=== PATIENT | female | born 1935 | race Caucasian/White ===

== ENCOUNTER 2017-11-23 11:10 | Observation (INO) | payer MEDICARE, OTHER ==
[2017-11-23 11:45] LABS: CHLORIDE,CL 107 mEq/L (98-106); SODIUM,NA 144 mEq/L (136-145)
[2017-11-23] MEDS ORDERED: Ondansetron 4 MG/2 ML SDV IV PRN (13:31)
[2017-11-23] MEDS ORDERED: Ondansetron 4 MG Tab.DIS PO PRN (13:31)
[2017-11-23] MEDS ORDERED: Acetaminophen 325 MG Tab PO PRN (13:31)
[2017-11-23] MEDS ORDERED: Enoxaparin 30 MG/0.3 ML Syringe SUBCUT SCH (14:00)
[2017-11-23] MEDS: Meclizine 12.5 MG Tab PO SCH ×2 (14:06→19:46)
[2017-11-23] MEDS: Sodium Chloride 0.9% 1,000 ML IV SCH (17:48)
[2017-11-24] MEDS: Meclizine 12.5 MG Tab PO SCH ×2 (01:16→07:40)
[2017-11-24] MEDS: Sodium Chloride 0.9% 1,000 ML IV SCH (06:52)
[2017-11-24 07:38] VITALS: BP 145/83
[2017-11-24] MEDS ORDERED: Aspirin 325 MG Tab PO SCH (08:00)
--- NOTE | 2017-11-24 08:51 | PCM.DCSUM1 ---
Discharge Summary - Hospital Course Free Text/Narrative:: Patient presented to clinic to see Sameera Birch with complaints of dizziness. States had been experiencing dizziness since , mostly in the am but thought it was related to her blood pressure. Would take her blood pressure medicine and symptoms would pass. On day of admission, symptoms did not improve. [place] like she was going to fall. Did have issues with nausea. No recent head trauma. Denies any weakness or numbness or tingling in her legs or arms. No visual changes. Labs essentially negative on admit, wBC 4.3, CRP 2.1. Small leukocytes in urine. Admitted and started on IV fluids. Referred to PT for canalith repositioning. Diagnosis: Stroke: No Modified [place] Scale: No Symptoms at All Modified [place] Scale Score: 0 - Discharge Data Discharge Date: 11/24/17 Discharge Disposition: Home, Self-Care 01 Condition: Good - Patient Summary/Data Complications: none Consults: Consultations 11/23/17 13:31 PT Evaluation and Treatment [CONS] Routine Hospital Course: Patient feeling good today. No further dizziness. Was to PT yesterday and had canalith repositioning. She is up and ambulatory in the room without concern. Denies nausea. Blood pressure has been stable. Will discharge home on Meclizine. - Patient Instructions Diet: Usual Diet as Tolerated Activity: As Tolerated - Discharge Plan *PRESCRIPTION DRUG MONITORING PROGRAM REVIEWED*: No *COPY OF PRESCRIPTION DRUG MONITORING REPORT IN PATIENT WILD: No Prescriptions/Med Rec: Meclizine [Antivert] 25 mg PO Q6H PRN #30 tablet PRN Reason: Dizziness Home Medications: Home Meds Aspirin 325 mg PO DAILY 07/12/13 [History] Niacin [Niacin ER] 1,000 mg PO DAILY 07/12/13 [History] Levothyroxine 175 mcg PO Q48H 07/13/13 [History] Metoprolol Succinate [Toprol XL] 50 mg PO BID 07/18/15 [History] Pantoprazole Sodium 1 tab PO DAILY 07/18/15 [History] Acetaminophen/Diphenhydramine [Tylenol Pm Ex-Strength Caplet] 1 tab PO BEDTIME 11/23/17 [History] busPIRone HCl [Buspirone HCl] 10 mg PO DAILY 11/23/17 [History] Meclizine [Antivert] 25 mg PO Q6H PRN #30 tablet 11/24/17 [Rx] Referrals: Sameera Birch PA-C [Primary Care Provider] - (Follow up with Sameera Birch in one week) - Discharge Summary/Plan Comment DC Time >30 min.: No Discharge Summary/Plan Comment: Discharge home Meclizine 25 mg q 6h as needed for dizziness Follow up with Sameera in one week. - General Info Date of Service: 11/24/17 Admission Dx/Problem (Free Text: Vertigo Functional Status: Reports: Pain Controlled, Tolerating Diet, Ambulating - Review of Systems General: Denies: Fever, Weakness, Fatigue HEENT: Reports: No Symptoms Pulmonary: Denies: Shortness of Breath, Cough Cardiovascular: Denies: Chest Pain, Edema, Lightheadedness Gastrointestinal: Denies: Abdominal Pain, Nausea, Vomiting Genitourinary: Reports: No Symptoms Musculoskeletal: Reports: No Symptoms Skin: Reports: No Symptoms Neurological: Denies: Dizziness, Headache, Weakness - Patient Data Vitals - Most Recent: Last Vital Signs Temp 97.7 F 11/24/17 07:37 Pulse 59 L 11/24/17 07:37 Resp 20 11/24/17 07:37 BP 145/83 H 11/24/17 07:37 Pulse Ox 96 11/24/17 07:37 Weight - Most Recent: 217 lb 6.4 oz I&O - Last 24 hours: Intake & Output 11/23/17 11/24/17 11/24/17 22:59 06:59 14:59 Intake Total 1100 1280 Output Total 1100 1100 700 Balance 0 180 -700 Lab Results - Last 24 hrs: Laboratory Results - last 24 hr 11/23/17 11/23/17 11/23/17 Range/Units 11:15 11:15 11:15 WBC 4.3 L (5.0-10.0) 10^3/uL RBC 4.81 (4.00-5.50) 10^6/uL Hgb 14.8 (12.0-16.0) g/dL Hct 45.7 (37.0-47.0) % MCV 95.0 H (82.0-94.0) fL MCH 30.8 (27.0-32.0) pg MCHC 32.4 L (33.0-38.0) g/dL RDW Coeff of [place] 13.0 (11.0-15.0) % Plt Count 187 (150-400) 10^3/uL Neut % (Auto) 68.3 (35-85) % Lymph % (Auto) 21.5 (10-55) % Early % (Auto) 6.0 (0-16) % Eos % (Auto) 3.7 (0-5) % Baso % (Auto) 0.5 (0-3) % Neut # (Auto) 2.96 (1.80-7.00) 10^3/uL Lymph # (Auto) 0.93 L (1.00-4.80) 10^3/uL Early # (Auto) 0.26 (0.00-0.80) 10^3/uL Eos # (Auto) 0.16 (0.00-0.45) 10^3/uL Baso # (Auto) 0.02 10^3/uL Sodium 144 (136-145) mEq/L Potassium 4.1 (3.5-5.0) mEq/L Chloride 107 H (98-106) mEq/L Carbon Dioxide 30 (21-32) mmol/L BUN 15 (7-18) mg/dL Creatinine 1.0 (0.6-1.0) mg/dL Est Cr Clr Drug Dosing TNP Estimated GFR (MDRD) 53 L (>=60) mL/min Glucose 117 H (75-99) mg/dL Calcium 9.1 (8.4-10.1) mg/dL Total Bilirubin 0.3 (0.0-1.0) mg/dL AST 25 (15-37) U/L ALT 32 (12-78) U/L Alkaline Phosphatase 106 (46-116) U/L C-Reactive Protein 2.1 H (0.2-0.8) mg/dL Total Protein 6.9 (6.4-8.2) g/dL Albumin 3.4 (3.4-5.0) g/dL TSH, Ultra Sensitive 0.66 (0.36-5.60) uIU/mL Urine Color Yellow (YELLOW) Urine Appearance Clear (CLEAR) Urine pH 7.0 (4.5-8.0) Ur Specific [place] 1.020 (1.003-1.020) Urine Protein Negative (NEGATIVE) mg/dL Urine Glucose (UA) Negative (NEGATIVE) mg/dL Urine Ketones Negative (NEGATIVE) mg/dL Urine Occult Blood Negative (NEGATIVE) Urine Nitrite Negative (NEGATIVE) Urine Bilirubin Negative (NEGATIVE) Urine Urobilinogen 0.2 (0.2-1.0) EU/dL Ur Leukocyte Esterase Small H (NEGATIVE) Urine RBC Not seen (0-5) /HPF Urine WBC 5-10 H (0-5) /HPF Ur Epithelial Cells Few H (NOT SEEN) /HPF Urine Mucus Moderate H (NOT SEEN) /HPF Med Orders - Current: Current Medications Acetaminophen (Tylenol) 650 mg PO Q4H PRN PRN Reason: Pain (Mild 1-3)/fever Aspirin (Aspirin) 325 mg PO DAILY [facility] Last Admin: 11/24/17 07:42 Dose: Not Given Enoxaparin Sodium (Lovenox) 30 mg SUBCUT Q24H [facility] Last Admin: 11/23/17 14:06 Dose: 30 mg Sodium Chloride (Normal Saline) 1,000 mls @ 75 mls/hr IV ASDIRECTED [facility] Last Admin: 11/24/17 06:52 Dose: 75 mls/hr Meclizine HCl (Antivert) 12.5 mg PO Q6H [facility] Last Admin: 11/24/17 07:40 Dose: 12.5 mg Ondansetron HCl (Zofran) 4 mg IV Q6H PRN PRN Reason: Nausea/Vomiting Ondansetron HCl (Zofran Odt) 4 mg PO Q4H PRN PRN Reason: nausea, able to take PO - Exam General: Reports: Alert, Oriented HEENT: Reports: Mucous Membr. Moist/[place]ck: Reports: Supple Lungs: Reports: Normal Respiratory Effort, Wheezing Cardiovascular: Reports: Regular Rate, Regular Rhythm GI/Abdominal Exam: Normal Bowel Sounds, Soft, Non-Tender Extremities: Normal Inspection, No Pedal Edema Skin: Reports: Warm, Dry Neurological: Reports: No New Focal Deficit
== END 2017-11-24 09:30 | disposition home or self-care (01) ==
LOC: CC.FCMC 11:10 → UNDOADMOB 11:58 → CC.MS 11:58
PROVIDERS: ADMIT Physician Assistant Medical; ATTEND Family Medicine
DX: R42 Dizziness and giddiness (principal); R53.1 Weakness; R26.89 Other abnormalities of gait and mobility; H83.93 Unspecified disease of inner ear, bilateral; Z79.82 Long term (current) use of aspirin; Z79.899 Other long term (current) drug therapy; Z87.891 Personal history of nicotine dependence
CPT/HCPCS: 36415; 70450; 80053; 81001; 84443; 85025; 86140; 96360; 96361; 96372; 97112; 97750; A9270; G0378; J1650; J7030; 99217; 99219

== ENCOUNTER 2021-03-06 19:45 | Inpatient (IN) | payer MEDICARE, OTHER ==
[2021-03-06] MEDS ORDERED: Ondansetron 8 MG in Sodium Chloride 0.9% 50 ML IV PRN (20:17)
[2021-03-06] MEDS ORDERED: Sodium Chloride 0.9% 1,000 ML IV ONE (20:19)
[2021-03-06] MEDS: Pantoprazole 40 MG Vial IVPUSH SCH (20:35)
[2021-03-06 20:54] LABS: CHLORIDE,CL 95 mEq/L (98-106); SODIUM,NA 141 mEq/L (136-145)
[2021-03-06 21:12] LABS: CORONAVIRUS COVID-19 NAA NEGATIVE (NEGATIVE)
[2021-03-06] MEDS ORDERED: Promethazine 12.5 MG in Sodium Chloride 0.9% 50 ML IV PRN (21:58)
[2021-03-06] MEDS: Sodium Chloride 0.9% 1,000 ML IV SCH (23:45)
[2021-03-07] MEDS: Ondansetron 4 MG/2 ML SDV IVPUSH PRN (02:56)
[2021-03-07] MEDS ORDERED: Levothyroxine 50 MCG Tab PO SCH (07:00)
[2021-03-07] MEDS ORDERED: Levothyroxine 125 MCG Tab PO SCH (07:00)
[2021-03-07] MEDS: Sodium Chloride 0.9% 1,000 ML IV SCH ×3 (07:45→20:30)
[2021-03-07] MEDS ORDERED: Take Home: Pantoprazole 40 MG Tab.CR, 1 Tab Pack PO SCH (08:00)
[2021-03-07] MEDS: Enoxaparin 30 MG/0.3 ML Syringe SUBCUT SCH (08:27)
[2021-03-07] MEDS: buPROPion 100 MG Tab.SR PO SCH ×2 (12:03→20:30)
[2021-03-07] MEDS: Metoprolol Succinate 100 MG Tab.ER PO SCH ×2 (12:03→20:30)
[2021-03-07] MEDS: PARoxetine 20 MG Tab PO SCH (12:06)
[2021-03-07] MEDS: Morphine 2 MG/ML SYRINGE IVPUSH PRN (18:45)
[2021-03-07] MEDS: Pantoprazole 40 MG Vial IVPUSH SCH (19:49)
[2021-03-07] MEDS ORDERED: NIACIN 500 MG PO SCH (20:00)
[2021-03-07] MEDS: Aspirin 325 MG Tab PO SCH (20:30)
[2021-03-08] MEDS: Sodium Chloride 0.9% 1,000 ML IV SCH ×2 (04:25→15:14)
[2021-03-08] MEDS: Levothyroxine 100 MCG Tab PO SCH (06:00)
[2021-03-08] MEDS: PARoxetine 20 MG Tab PO SCH (08:29)
[2021-03-08] MEDS: Metoprolol Succinate 100 MG Tab.ER PO SCH ×2 (08:29→21:00)
[2021-03-08] MEDS: buPROPion 100 MG Tab.SR PO SCH ×2 (08:30→21:00)
[2021-03-08] MEDS: Enoxaparin 30 MG/0.3 ML Syringe SUBCUT SCH (08:35)
[2021-03-08] MEDS ORDERED: Metoprolol Tartrate 5 MG/5 ML SDV IVPUSH ONE ×3 (12:44→18:11)
[2021-03-08] MEDS: Morphine 2 MG/ML SYRINGE IVPUSH PRN (19:46)
[2021-03-08] MEDS: Pantoprazole 40 MG Vial IVPUSH SCH (19:51)
[2021-03-08] MEDS: Aspirin 325 MG Tab PO SCH (21:00)
[2021-03-08] MEDS ORDERED: Metoprolol Tartrate 5 MG/5 ML SDV IVPUSH STA (23:42)
[2021-03-09] MEDS ORDERED: Metoprolol Tartrate 5 MG/5 ML SDV IVPUSH STA (00:08)
[2021-03-09] MEDS: Morphine 2 MG/ML SYRINGE IVPUSH PRN ×3 (00:25→10:03)
[2021-03-09] MEDS: Sodium Chloride 0.9% 1,000 ML IV SCH ×2 (00:48→13:51)
[2021-03-09] MEDS: PARoxetine 20 MG Tab PO SCH (08:13)
[2021-03-09] MEDS: Enoxaparin 30 MG/0.3 ML Syringe SUBCUT SCH (08:13)
[2021-03-09] MEDS: Metoprolol Succinate 100 MG Tab.ER PO SCH ×2 (08:14→19:40)
[2021-03-09] MEDS: buPROPion 100 MG Tab.SR PO SCH ×2 (08:20→19:40)
[2021-03-09] MEDS: Levothyroxine 100 MCG Tab PO SCH (08:29)
[2021-03-09] MEDS ORDERED: Metoprolol Tartrate 5 MG/5 ML SDV IVPUSH ONE ×2 (13:29→15:03)
[2021-03-09] MEDS: Pantoprazole 40 MG Vial IVPUSH SCH (19:39)
[2021-03-09] MEDS: Aspirin 325 MG Tab PO SCH (19:40)
[2021-03-09] MEDS ORDERED: cloNIDine 0.1 MG Tab PO STA (20:19)
[2021-03-09] MEDS: Losartan 25 MG Tab PO SCH (20:47)
[2021-03-10] MEDS: Sodium Chloride 0.9% 1,000 ML IV SCH ×2 (03:12→18:21)
[2021-03-10] MEDS: Losartan 25 MG Tab PO SCH (08:36)
[2021-03-10] MEDS: Metoprolol Succinate 100 MG Tab.ER PO SCH ×2 (08:36→20:18)
[2021-03-10] MEDS: Levothyroxine 100 MCG Tab PO SCH (08:37)
[2021-03-10] MEDS: PARoxetine 20 MG Tab PO SCH (08:38)
[2021-03-10] MEDS: Enoxaparin 30 MG/0.3 ML Syringe SUBCUT SCH (08:38)
[2021-03-10] MEDS: buPROPion 100 MG Tab.SR PO SCH ×2 (08:38→20:18)
[2021-03-10] MEDS: Aspirin 325 MG Tab PO SCH (20:18)
[2021-03-10] MEDS: Pantoprazole 40 MG Vial IVPUSH SCH (20:19)
[2021-03-10] MEDS ORDERED: cloNIDine 0.1 MG Tab PO STA (20:28)
[2021-03-10] MEDS: cloNIDine 0.1 MG Tab PO STA ×2 (20:41→20:42)
[2021-03-11] MEDS: Sodium Chloride 0.9% 1,000 ML IV SCH ×2 (07:37→21:05)
[2021-03-11] MEDS: Enoxaparin 30 MG/0.3 ML Syringe SUBCUT SCH (07:38)
[2021-03-11] MEDS: buPROPion 100 MG Tab.SR PO SCH ×2 (07:38→19:52)
[2021-03-11] MEDS: Metoprolol Succinate 100 MG Tab.ER PO SCH ×2 (07:40→19:48)
[2021-03-11] MEDS: Levothyroxine 100 MCG Tab PO SCH (07:40)
[2021-03-11] MEDS: PARoxetine 20 MG Tab PO SCH (07:41)
[2021-03-11] MEDS: Losartan 25 MG Tab PO SCH (07:41)
[2021-03-11] MEDS: Aspirin 325 MG Tab PO SCH (19:48)
[2021-03-11] MEDS: Pantoprazole 40 MG Vial IVPUSH SCH (19:48)
[2021-03-12] MEDS ORDERED: cloNIDine 0.1 MG Tab PO STA (05:09)
[2021-03-12] MEDS: Levothyroxine 100 MCG Tab PO SCH (06:11)
[2021-03-12] MEDS: buPROPion 100 MG Tab.SR PO SCH (08:26)
[2021-03-12] MEDS: PARoxetine 20 MG Tab PO SCH (08:26)
[2021-03-12] MEDS: Metoprolol Succinate 100 MG Tab.ER PO SCH (08:26)
[2021-03-12] MEDS: Losartan 25 MG Tab PO SCH (08:27)
[2021-03-12] MEDS: Enoxaparin 30 MG/0.3 ML Syringe SUBCUT SCH (08:28)
[2021-03-12] MEDS: Ondansetron 4 MG/2 ML SDV IVPUSH PRN (12:46)
[2021-03-12 13:03] VITALS: BP 164/86; PULSE 58
== END 2021-03-12 15:12 | disposition home or self-care (01) | DRG 683 ==
LOC: CC.ED 19:45 → UNDOADMIN 21:24 → CC.MS 21:24 → UNDOADMIN 21:30 → CC.MS 21:30 → UNDOADMIN 03-07 10:40 → CC.MS 03-07 10:40
PROVIDERS: ADMIT Nurse Practitioner Family; ATTEND Family Medicine
DX: N17.9 Acute kidney failure, unspecified (principal); K56.609 Unspecified intestinal obstruction, unspecified as to partial versus complete obstruction; E86.0 Dehydration; Z20.822 Contact with and (suspected) exposure to COVID-19; I10 Essential (primary) hypertension; K21.9 Gastro-esophageal reflux disease without esophagitis; H91.90 Unspecified hearing loss, unspecified ear; H54.7 Unspecified visual loss; E03.9 Hypothyroidism, unspecified; M19.90 Unspecified osteoarthritis, unspecified site; F32.A Depression, unspecified; Z79.899 Other long term (current) drug therapy; Z96.652 Presence of left artificial knee joint; Z98.49 Cataract extraction status, unspecified eye; Z79.82 Long term (current) use of aspirin; Z79.890 Hormone replacement therapy
CPT/HCPCS: 0240U; 36415; 74019; 74176; 80048; 80053; 81001; 83605; 83690; 85025; 86140; 99285-25; A9270-GY; C9113; J1650; J2270; J2405; J2550; J3490; J7030

== ENCOUNTER 2021-03-18 10:43 | Observation (INO) | payer MEDICARE, OTHER ==
[2021-03-18] MEDS ORDERED: Sodium Chloride 0.9% 10 ML Syringe FLUSH PRN (10:52)
[2021-03-18] MEDS ORDERED: Non-Formulary Medication 1 Each (Ondansetron [Zofran Odt] 4 MG Tab.Dis) PO PRN (11:52)
[2021-03-18] MEDS ORDERED: Potassium Chloride 10 MEQ in Premix Bag 1 BAG IV SCH (12:19)
[2021-03-18] MEDS ORDERED: Loperamide 2 MG Cap PO PRN (12:19)
[2021-03-18] MEDS ORDERED: Potassium Chloride 20 MEQ in Premix Bag 1 BAG IV SCH (12:30)
[2021-03-18] MEDS ORDERED: Magnesium Sulfate/Water 2 GM in Premix Bag 1 BAG IV ONE (12:30)
[2021-03-18] MEDS: Sodium Chloride 0.9% 1,000 ML IV SCH (12:37)
[2021-03-18] MEDS: Potassium Chloride 20 MEQ in Premix Bag 1 BAG IV SCH ×3 (15:21→20:01)
[2021-03-18] MEDS: BUPROPION HCL 200 MG PO SCH (17:18)
[2021-03-18] MEDS ORDERED: SLO NIACIN 500 MG PO SCH (20:00)
[2021-03-18] MEDS ORDERED: Aspirin 325 MG Tab PO SCH (20:00)
[2021-03-19] MEDS: Sodium Chloride 0.9% 1,000 ML IV SCH (04:49)
[2021-03-19] MEDS ORDERED: LEVOTHYROXINE 200 MCG PO SCH (07:00)
[2021-03-19] MEDS ORDERED: Pantoprazole 40 MG Tab.CR **PTOM PO SCH (07:00)
[2021-03-19] MEDS: BUPROPION HCL 200 MG PO SCH (07:29)
[2021-03-19 07:54] VITALS: BP 169/79; PULSE 66
[2021-03-19] MEDS ORDERED: PARoxetine 20 MG Tab **PTOM PO SCH (08:00)
== END 2021-03-19 13:08 | disposition home health service (06) ==
LOC: CC.ED 10:43 → UNDOADMOB 11:43 → CC.MS 11:43 → UNDOADMOB 11:56 → UNDODISOB 03-19 13:08
PROVIDERS: ADMIT Nurse Practitioner Family; ATTEND Family Medicine
DX: K52.9 Noninfective gastroenteritis and colitis, unspecified (principal); I10 Essential (primary) hypertension; E87.6 Hypokalemia; E83.42 Hypomagnesemia; Z79.82 Long term (current) use of aspirin; Z79.899 Other long term (current) drug therapy; Z98.890 Other specified postprocedural states
CPT/HCPCS: 36415; 80053; 83735; 85025; 87045; 87046; 87493; 96365; 96366; 99284; A9270; G0378; J3475; J3480; J7030; 99217; 99220

== ENCOUNTER 2021-05-04 11:20 | Inpatient (IN) | payer MEDICARE, OTHER ==
[2021-05-04] MEDS ORDERED: Ondansetron 4 MG/2 ML SDV ONE (11:41)
[2021-05-04] MEDS ORDERED: Diltiazem 25 MG/5 ML SDV IVPUSH ONE (11:53)
[2021-05-04] MEDS ORDERED: Sodium Chloride 0.9% 1,000 ML IV ONE (11:54)
[2021-05-04] MEDS ORDERED: Ondansetron 4 MG/2 ML SDV IVPUSH STA (12:06)
[2021-05-04] MEDS ORDERED: Ondansetron 4 MG/2 ML SDV IVPUSH ONE (12:06)
[2021-05-04] MEDS ORDERED: Sodium Chloride 0.9% 1,000 ML IV SCH (12:33)
[2021-05-04] MEDS ORDERED: Iopamidol 755 Mg/ML 100 ML Bottle IVPUSH ONE (12:48)
[2021-05-04] MEDS ORDERED: Docusate Sodium 100 MG Cap PO PRN (14:11)
[2021-05-04] MEDS ORDERED: Ondansetron 4 MG Tab.DIS PO PRN (14:21)
[2021-05-04] MEDS ORDERED: Metoprolol Tartrate 5 MG/5 ML SDV IVPUSH ONE (16:41)
[2021-05-04] MEDS: Carvedilol 3.125 MG Tab PO SCH (17:32)
[2021-05-04] MEDS: buPROPion 100 MG Tab.SR PO SCH (19:30)
[2021-05-04] MEDS: busPIRone 5 MG Tab PO SCH (19:31)
[2021-05-04] MEDS: Acetaminophen 325 MG Tab PO PRN (23:31)
[2021-05-05] MEDS: Levothyroxine 100 MCG Tab PO SCH (06:08)
[2021-05-05] MEDS: buPROPion 100 MG Tab.SR PO SCH ×2 (07:48→20:56)
[2021-05-05] MEDS: Losartan 100 MG Tab PO SCH (07:48)
[2021-05-05] MEDS: busPIRone 5 MG Tab PO SCH ×2 (07:49→20:56)
[2021-05-05] MEDS: Carvedilol 3.125 MG Tab PO SCH ×2 (07:51→17:33)
[2021-05-05] MEDS ORDERED: Metoprolol Succinate 100 MG Tab.ER PO SCH (08:00)
[2021-05-05] MEDS ORDERED: Take Home: Pantoprazole 40 MG Tab.CR, 1 Tab Pack PO ONE (08:53)
[2021-05-05] MEDS ORDERED: Pantoprazole 40 MG Tab.CR PO ONE (09:15)
[2021-05-05] MEDS: Enoxaparin 40 MG/0.4 ML Syringe SUBCUT SCH (11:56)
[2021-05-06] MEDS: Pantoprazole 40 MG Tab.CR PO SCH (06:04)
[2021-05-06] MEDS: Levothyroxine 100 MCG Tab PO SCH (06:04)
[2021-05-06] MEDS: buPROPion 100 MG Tab.SR PO SCH ×2 (07:39→19:04)
[2021-05-06] MEDS: busPIRone 5 MG Tab PO SCH ×2 (07:40→19:05)
[2021-05-06] MEDS: Losartan 100 MG Tab PO SCH (07:40)
[2021-05-06] MEDS: Carvedilol 3.125 MG Tab PO SCH ×2 (08:09→17:34)
[2021-05-06] MEDS ORDERED: Meclizine 12.5 MG Tab PO PRN (09:21)
[2021-05-06] MEDS: Carbamide Peroxide 6.5% Otic Soln 15 ML Bottle EARBOTH SCH ×2 (11:46→19:05)
[2021-05-06] MEDS: Enoxaparin 40 MG/0.4 ML Syringe SUBCUT SCH (11:46)
[2021-05-06] MEDS ORDERED: Carvedilol 3.125 MG Tab PO ONE (18:20)
[2021-05-07] MEDS: Acetaminophen 325 MG Tab PO PRN (00:13)
[2021-05-07] MEDS: Pantoprazole 40 MG Tab.CR PO SCH (06:04)
[2021-05-07] MEDS: Levothyroxine 100 MCG Tab PO SCH (06:04)
[2021-05-07] MEDS: buPROPion 100 MG Tab.SR PO SCH (07:58)
[2021-05-07] MEDS: Losartan 100 MG Tab PO SCH (07:58)
[2021-05-07] MEDS ORDERED: Carvedilol 6.25 MG Tab PO SCH (08:00)
[2021-05-07] MEDS: busPIRone 5 MG Tab PO SCH (08:00)
[2021-05-07] MEDS: Carbamide Peroxide 6.5% Otic Soln 15 ML Bottle EARBOTH SCH (08:03)
[2021-05-07] MEDS ORDERED: Furosemide 20 MG/2 ML VIAL IVPUSH ONE (10:54)
[2021-05-07] MEDS: Enoxaparin 40 MG/0.4 ML Syringe SUBCUT SCH (11:06)
[2021-05-07] MEDS ORDERED: Furosemide 20 MG/2 ML VIAL ONE (11:31)
[2021-05-07 11:50] VITALS: BP 156/99; PULSE 119
== END 2021-05-07 12:47 | DRG 309 ==
LOC: CC.ED 11:20 → UNDOADMIN 13:15 → CC.MS 13:15
PROVIDERS: ADMIT Nurse Practitioner Family; ATTEND Nurse Practitioner Family
DX: I48.91 Unspecified atrial fibrillation (principal); N17.9 Acute kidney failure, unspecified; R09.02 Hypoxemia; I11.0 Hypertensive heart disease with heart failure; I50.9 Heart failure, unspecified; H61.23 Impacted cerumen, bilateral; H91.90 Unspecified hearing loss, unspecified ear; I10 Essential (primary) hypertension; M19.90 Unspecified osteoarthritis, unspecified site; H54.7 Unspecified visual loss; Z20.822 Contact with and (suspected) exposure to COVID-19; F41.9 Anxiety disorder, unspecified; F32.A Depression, unspecified; E03.9 Hypothyroidism, unspecified; Z96.653 Presence of artificial knee joint, bilateral; R73.9 Hyperglycemia, unspecified; E86.0 Dehydration; Z79.82 Long term (current) use of aspirin; Z79.890 Hormone replacement therapy; Z79.899 Other long term (current) drug therapy; Z98.49 Cataract extraction status, unspecified eye
CPT/HCPCS: 36415; 71045; 71275; 80053; 81001; 83735; 83880; 84484; 85025; 85379; 85610; 93005; 93010; 93306; 96374; 96375; 97161-GP; 99223; 99232; 99233; 99238; 99285-25; A9270-GY; J1650; J1940; J2405; J3490; J7030; Q9967; U0002

== ENCOUNTER 2021-06-23 03:50 | Inpatient (IN) | payer MEDICARE, OTHER ==
[2021-06-23] MEDS ORDERED: Albuterol/Ipratropium 3.0-0.5 MG/3 ML Neb Soln NEB ONE ×2 (04:25→04:51)
[2021-06-23] MEDS ORDERED: methylPREDNISolone Sodium Succinate 125 MG/2 ML SDV IVPUSH STA (04:42)
[2021-06-23] MEDS ORDERED: Sodium Chloride 0.9% 500 ML IV SCH (05:15)
[2021-06-23] MEDS ORDERED: Ondansetron 4 MG Tab.DIS PO PRN (06:06)
[2021-06-23] MEDS ORDERED: SCOPOLAMINE TD SCH (06:15)
[2021-06-23] MEDS ORDERED: Scopolamine 1.5 MG Transdermal Patch TOP SCH (06:37)
[2021-06-23] MEDS: Albuterol/Ipratropium 3.0-0.5 MG/3 ML Neb Soln NEB SCH ×5 (06:55→23:22)
[2021-06-23] MEDS: Sodium Chloride 0.9% 1,000 ML IV SCH ×2 (07:08→21:04)
[2021-06-23] MEDS ORDERED: Albuterol/Ipratropium 3.0-0.5 MG/3 ML Neb Soln NEB SCH (08:00)
[2021-06-23] MEDS: Levothyroxine 50 MCG Tab PO SCH (10:11)
[2021-06-23] MEDS: Diltiazem 180 MG Cap.CD PO SCH (10:33)
[2021-06-23] MEDS: Diltiazem 120 MG Cap.CD PO SCH (10:33)
[2021-06-23] MEDS: Losartan 25 MG Tab PO SCH (10:33)
[2021-06-23] MEDS: Apixaban 5 MG Tab PO SCH ×2 (10:33→20:52)
[2021-06-23] MEDS: NITROFURANTOIN MACROCRYSTAL 25 MG PO SCH ×2 (10:33→20:53)
[2021-06-23] MEDS: Metoprolol Succinate 100 MG Tab.ER PO SCH ×2 (10:34→20:53)
[2021-06-23] MEDS: Scopolamine 1.5 MG Transdermal Patch TOP SCH (10:34)
[2021-06-23] MEDS: cefTRIAXone 1 GM Vial IVPUSH SCH (14:17)
[2021-06-23] MEDS: methylPREDNISolone Sodium Succinate 125 MG/2 ML SDV IVPUSH SCH (20:53)
[2021-06-24] MEDS: Albuterol/Ipratropium 3.0-0.5 MG/3 ML Neb Soln NEB SCH ×6 (02:32→19:42)
[2021-06-24] MEDS: Sodium Chloride 0.9% 1,000 ML IV SCH (05:26)
[2021-06-24] MEDS: Levothyroxine 50 MCG Tab PO SCH ×3 (06:27→09:30)
[2021-06-24] MEDS: methylPREDNISolone Sodium Succinate 125 MG/2 ML SDV IVPUSH SCH ×2 (08:52→19:42)
[2021-06-24] MEDS ORDERED: cefTRIAXone 1 GM Vial IVPUSH SCH (09:00)
[2021-06-24] MEDS: Levothyroxine 100 MCG Tab PO SCH (09:00)
[2021-06-24] MEDS: Apixaban 5 MG Tab PO SCH ×2 (09:02→19:43)
[2021-06-24] MEDS: Diltiazem 180 MG Cap.CD PO SCH (09:02)
[2021-06-24] MEDS: Losartan 100 MG Tab PO SCH (09:02)
[2021-06-24] MEDS: Diltiazem 120 MG Cap.CD PO SCH (09:02)
[2021-06-24] MEDS: cefTRIAXone 1 GM Vial IVPUSH SCH ×2 (09:04→09:15)
[2021-06-24] MEDS: Metoprolol Tartrate 50 MG Tab PO SCH ×2 (09:04→19:43)
[2021-06-24] MEDS: Pantoprazole 40 MG Tab.CR PO SCH (09:08)
[2021-06-24] MEDS: Losartan 25 MG Tab PO SCH (09:30)
[2021-06-24] MEDS: Metoprolol Succinate 100 MG Tab.ER PO SCH (14:57)
[2021-06-25] MEDS ORDERED: Non-Formulary Medication 1 Each (Levothyroxine [Levothyroxine] 25 MCG Tablet) PO SCH (07:00)
[2021-06-25] MEDS: Levothyroxine 100 MCG Tab PO SCH (07:17)
[2021-06-25] MEDS: Levothyroxine 50 MCG Tab PO SCH (07:17)
[2021-06-25] MEDS: Diltiazem 180 MG Cap.CD PO SCH (07:59)
[2021-06-25] MEDS: Losartan 100 MG Tab PO SCH (08:00)
[2021-06-25] MEDS: Apixaban 5 MG Tab PO SCH ×2 (08:00→19:55)
[2021-06-25] MEDS: Diltiazem 120 MG Cap.CD PO SCH (08:00)
[2021-06-25] MEDS: Metoprolol Tartrate 50 MG Tab PO SCH ×2 (08:00→19:55)
[2021-06-25] MEDS: Pantoprazole 40 MG Tab.CR PO SCH (08:00)
[2021-06-25] MEDS: methylPREDNISolone Sodium Succinate 125 MG/2 ML SDV IVPUSH SCH ×2 (08:02→19:55)
[2021-06-25] MEDS: cefTRIAXone 1 GM Vial IVPUSH SCH (08:02)
[2021-06-25] MEDS: Albuterol/Ipratropium 3.0-0.5 MG/3 ML Neb Soln NEB SCH ×4 (08:02→19:55)
[2021-06-25] MEDS ORDERED: Metoprolol Tartrate 5 MG/5 ML SDV IVPUSH ONE (22:43)
[2021-06-25] MEDS ORDERED: Furosemide 40 MG/4 ML VIAL IVPUSH ONE (23:35)
[2021-06-26] MEDS: Levothyroxine 100 MCG Tab PO SCH (06:31)
[2021-06-26] MEDS: Levothyroxine 50 MCG Tab PO SCH (06:31)
[2021-06-26] MEDS: Losartan 100 MG Tab PO SCH (07:50)
[2021-06-26] MEDS: Metoprolol Tartrate 50 MG Tab PO SCH ×2 (07:51→19:45)
[2021-06-26] MEDS: Pantoprazole 40 MG Tab.CR PO SCH (07:51)
[2021-06-26] MEDS: Diltiazem 180 MG Cap.CD PO SCH (07:51)
[2021-06-26] MEDS: Apixaban 5 MG Tab PO SCH ×2 (07:51→19:45)
[2021-06-26] MEDS: Diltiazem 120 MG Cap.CD PO SCH (07:51)
[2021-06-26] MEDS: cefTRIAXone 1 GM Vial IVPUSH SCH (07:52)
[2021-06-26] MEDS: Albuterol/Ipratropium 3.0-0.5 MG/3 ML Neb Soln NEB SCH (07:52)
[2021-06-26] MEDS: Scopolamine 1.5 MG Transdermal Patch TOP SCH (09:09)
[2021-06-26] MEDS ORDERED: Albuterol/Ipratropium 3.0-0.5 MG/3 ML Neb Soln NEB PRN (09:16)
[2021-06-26] MEDS ORDERED: methylPREDNISolone Sodium Succinate 125 MG/2 ML SDV IVPUSH SCH (20:00)
[2021-06-27] MEDS: Levothyroxine 50 MCG Tab PO SCH (06:35)
[2021-06-27] MEDS: Levothyroxine 100 MCG Tab PO SCH (06:35)
[2021-06-27] MEDS: Metoprolol Tartrate 50 MG Tab PO SCH (07:39)
[2021-06-27] MEDS: Pantoprazole 40 MG Tab.CR PO SCH (07:39)
[2021-06-27] MEDS: Losartan 100 MG Tab PO SCH (07:39)
[2021-06-27] MEDS: Apixaban 5 MG Tab PO SCH (07:39)
[2021-06-27] MEDS: cefTRIAXone 1 GM Vial IVPUSH SCH (07:39)
[2021-06-27] MEDS: Diltiazem 180 MG Cap.CD PO SCH (07:39)
[2021-06-27] MEDS: Diltiazem 120 MG Cap.CD PO SCH (07:40)
[2021-06-27 09:10] VITALS: BP 123/82; PULSE 106
== END 2021-06-27 11:55 | disposition home or self-care (01) | DRG 202 ==
LOC: CC.ED 03:50 → UNDOADMOB 05:30 → CC.MS 05:30 → OBSVTOIN 06-24 08:27
PROVIDERS: ADMIT Nurse Practitioner Family; ATTEND Nurse Practitioner Family
DX: J45.909 Unspecified asthma, uncomplicated (principal); N30.00 Acute cystitis without hematuria; N39.0 Urinary tract infection, site not specified; I48.20 Chronic atrial fibrillation, unspecified; R42 Dizziness and giddiness; I10 Essential (primary) hypertension; F32.A Depression, unspecified; F32.9 Major depressive disorder, single episode, unspecified; M19.90 Unspecified osteoarthritis, unspecified site; G43.909 Migraine, unspecified, not intractable, without status migrainosus; Z20.822 Contact with and (suspected) exposure to COVID-19; F41.9 Anxiety disorder, unspecified; E03.9 Hypothyroidism, unspecified; H54.7 Unspecified visual loss; H91.90 Unspecified hearing loss, unspecified ear; Z96.653 Presence of artificial knee joint, bilateral; Z98.49 Cataract extraction status, unspecified eye; Z79.01 Long term (current) use of anticoagulants; Z79.82 Long term (current) use of aspirin; Z79.899 Other long term (current) drug therapy; Z79.890 Hormone replacement therapy
CPT/HCPCS: 36415; 71046; 80053; 83880; 84484; 85025; 87070; 87205; 93005; 94640; 96374; 96375; 96376; 97161-GP; 99285-25; A9270-GY; G0378; J0696; J1940; J2930; J3490; J7030; J7620-GY; U0002

== ENCOUNTER 2021-07-05 07:10 | Emergency (ER) | payer MEDICARE, OTHER ==
[2021-07-05] MEDS: Meclizine 12.5 MG Tab PO ONE ×2 (07:44→08:57)
[2021-07-05 08:07] LABS: PTT,PARTIAL THROMBOPLSTIN TIME 26.1 SEC (23.2-32.3)
[2021-07-05] MEDS ORDERED: Sodium Chloride 0.9% 10 ML Syringe FLUSH PRN (08:19)
[2021-07-05] MEDS: Ondansetron 4 MG/2 ML SDV IVPUSH ONE (08:50)
[2021-07-05] MEDS: Potassium Chloride 10% 20 MEQ/15 ML Soln 15 ML UD Cup PO ONE (08:56)
[2021-07-05 09:02] VITALS: BP 152/87; PULSE 82
[2021-07-05] MEDS ORDERED: Iopamidol 755 Mg/ML 100 ML Bottle IVPUSH ONE (10:03)
== END 2021-07-05 11:59 | disposition swing bed (61) ==
LOC: CC.ED 07:10
DX: R42 Dizziness and giddiness (principal); I11.0 Hypertensive heart disease with heart failure; I50.9 Heart failure, unspecified; I48.91 Unspecified atrial fibrillation; E87.6 Hypokalemia; E03.9 Hypothyroidism, unspecified; Z79.01 Long term (current) use of anticoagulants; Z79.899 Other long term (current) drug therapy; Z20.822 Contact with and (suspected) exposure to COVID-19
CPT/HCPCS: 36415; 70450; 71045; 71275; 80053; 82550; 83605; 83615; 83690; 83735; 83880; 84443; 84484; 85025; 85379; 85610; 85730; 86140; 87804; 93005; 96374; 99285; 99285-25; A9270-GY; J2405; U0002

== ENCOUNTER 2021-07-05 12:13 | Inpatient (IN) | payer MEDICARE, OTHER ==
[2021-07-05] MEDS ORDERED: Sodium Chloride 0.9% 10 ML Syringe FLUSH PRN (12:39)
[2021-07-05] MEDS ORDERED: Acetaminophen 325 MG Tab PO PRN (12:39)
[2021-07-05] MEDS ORDERED: Furosemide 20 MG/2 ML VIAL IVPUSH ONE (14:30)
[2021-07-05] MEDS ORDERED: Furosemide 20 MG/2 ML VIAL ONE (16:50)
[2021-07-05] MEDS: Metoprolol Tartrate 50 MG Tab PO SCH (19:51)
[2021-07-05] MEDS: Apixaban 5 MG Tab PO SCH (19:51)
[2021-07-05] MEDS ORDERED: Melatonin 3 MG Tab PO SCH (20:00)
[2021-07-05] MEDS ORDERED: Metoprolol Tartrate 50 MG Tab PO SCH (20:00)
[2021-07-06] MEDS: buPROPion 100 MG Tab.SR PO SCH ×2 (08:00→20:06)
[2021-07-06] MEDS: Levothyroxine 50 MCG Tab PO SCH (08:00)
[2021-07-06] MEDS: Diltiazem 180 MG Cap.CD PO SCH (08:00)
[2021-07-06] MEDS: Diltiazem 120 MG Cap.CD PO SCH (08:00)
[2021-07-06] MEDS: Losartan 100 MG Tab PO SCH (08:00)
[2021-07-06] MEDS: Potassium Chloride 10 MEQ Tab.ER PO SCH (08:01)
[2021-07-06] MEDS: Apixaban 5 MG Tab PO SCH ×2 (08:01→20:06)
[2021-07-06] MEDS: Levothyroxine 100 MCG Tab PO SCH (08:01)
[2021-07-06] MEDS: Metoprolol Tartrate 50 MG Tab PO SCH ×2 (08:01→20:06)
[2021-07-06] MEDS: Pantoprazole 40 MG Tab.CR PO SCH (08:01)
[2021-07-06] MEDS: Furosemide 20 MG/2 ML VIAL IVPUSH SCH (08:02)
[2021-07-07] MEDS: Levothyroxine 100 MCG Tab PO SCH (06:58)
[2021-07-07] MEDS: Pantoprazole 40 MG Tab.CR PO SCH (06:59)
[2021-07-07] MEDS: Levothyroxine 50 MCG Tab PO SCH (06:59)
[2021-07-07] MEDS: Metoprolol Tartrate 50 MG Tab PO SCH ×2 (07:44→19:52)
[2021-07-07] MEDS: Losartan 100 MG Tab PO SCH (07:45)
[2021-07-07] MEDS: Apixaban 5 MG Tab PO SCH ×2 (07:45→19:52)
[2021-07-07] MEDS: Potassium Chloride 10 MEQ Tab.ER PO SCH (07:45)
[2021-07-07] MEDS: Diltiazem 180 MG Cap.CD PO SCH (07:45)
[2021-07-07] MEDS: buPROPion 100 MG Tab.SR PO SCH ×2 (07:45→19:52)
[2021-07-07] MEDS: Diltiazem 120 MG Cap.CD PO SCH (07:46)
[2021-07-07] MEDS: Furosemide 20 MG/2 ML VIAL IVPUSH SCH (07:46)
[2021-07-08] MEDS: Diltiazem 120 MG Cap.CD PO SCH (07:57)
[2021-07-08] MEDS: Losartan 100 MG Tab PO SCH (07:58)
[2021-07-08] MEDS: Pantoprazole 40 MG Tab.CR PO SCH (07:58)
[2021-07-08] MEDS: Levothyroxine 50 MCG Tab PO SCH (07:59)
[2021-07-08] MEDS: Levothyroxine 100 MCG Tab PO SCH (07:59)
[2021-07-08] MEDS: Diltiazem 180 MG Cap.CD PO SCH (08:00)
[2021-07-08] MEDS: Apixaban 5 MG Tab PO SCH ×2 (08:00→19:47)
[2021-07-08] MEDS: Potassium Chloride 10 MEQ Tab.ER PO SCH (08:00)
[2021-07-08] MEDS: Metoprolol Tartrate 50 MG Tab PO SCH ×2 (08:00→19:46)
[2021-07-08] MEDS: buPROPion 100 MG Tab.SR PO SCH ×2 (08:00→19:44)
[2021-07-08] MEDS: Furosemide 20 MG/2 ML VIAL IVPUSH SCH (08:01)
[2021-07-08] MEDS: Meclizine 12.5 MG Tab PO PRN (10:30)
[2021-07-08] MEDS ORDERED: Diazepam 5 MG Tab PO ONE ×2 (13:35→19:31)
[2021-07-09] MEDS: Levothyroxine 100 MCG Tab PO SCH (07:36)
[2021-07-09] MEDS: Furosemide 20 MG/2 ML VIAL IVPUSH SCH (07:36)
[2021-07-09] MEDS: Levothyroxine 50 MCG Tab PO SCH (07:37)
[2021-07-09] MEDS: Metoprolol Tartrate 50 MG Tab PO SCH ×2 (07:37→19:23)
[2021-07-09] MEDS: buPROPion 100 MG Tab.SR PO SCH ×2 (07:37→19:21)
[2021-07-09] MEDS: Apixaban 5 MG Tab PO SCH ×2 (07:38→19:21)
[2021-07-09] MEDS: Diltiazem 180 MG Cap.CD PO SCH (07:38)
[2021-07-09] MEDS: Losartan 100 MG Tab PO SCH (07:38)
[2021-07-09] MEDS: Diltiazem 120 MG Cap.CD PO SCH (07:38)
[2021-07-09] MEDS: Potassium Chloride 10 MEQ Tab.ER PO SCH (07:38)
[2021-07-09] MEDS: Pantoprazole 40 MG Tab.CR PO SCH (07:38)
[2021-07-09] MEDS: Ondansetron 4 MG Tab.DIS PO PRN ×2 (08:50→18:11)
[2021-07-09] MEDS ORDERED: Diazepam 5 MG Tab PO ONE (23:20)
[2021-07-10] MEDS: Levothyroxine 100 MCG Tab PO SCH (06:50)
[2021-07-10] MEDS: Pantoprazole 40 MG Tab.CR PO SCH (06:52)
[2021-07-10] MEDS: Levothyroxine 50 MCG Tab PO SCH (06:53)
[2021-07-10] MEDS: buPROPion 100 MG Tab.SR PO SCH ×2 (07:52→19:32)
[2021-07-10] MEDS: Metoprolol Tartrate 50 MG Tab PO SCH ×2 (07:52→19:31)
[2021-07-10] MEDS: Potassium Chloride 10 MEQ Tab.ER PO SCH (07:52)
[2021-07-10] MEDS: Losartan 100 MG Tab PO SCH (07:52)
[2021-07-10] MEDS: Apixaban 5 MG Tab PO SCH ×2 (07:53→19:30)
[2021-07-10] MEDS: Furosemide 20 MG/2 ML VIAL IVPUSH SCH (07:53)
[2021-07-10] MEDS: Diltiazem 180 MG Cap.CD PO SCH (07:53)
[2021-07-10] MEDS: Diltiazem 120 MG Cap.CD PO SCH (07:56)
[2021-07-10] MEDS ORDERED: Polyethylene Glycol 3350 Powder 17 GM Packet PO PRN (09:34)
[2021-07-10] MEDS: Ondansetron 4 MG Tab.DIS PO PRN (09:34)
[2021-07-10] MEDS ORDERED: Diazepam 5 MG Tab PO PRN (18:34)
[2021-07-11] MEDS: Levothyroxine 50 MCG Tab PO SCH (07:32)
[2021-07-11] MEDS: Levothyroxine 100 MCG Tab PO SCH (07:33)
[2021-07-11] MEDS: Metoprolol Tartrate 50 MG Tab PO SCH (07:33)
[2021-07-11] MEDS: Diltiazem 180 MG Cap.CD PO SCH (07:33)
[2021-07-11] MEDS: Potassium Chloride 10 MEQ Tab.ER PO SCH (07:33)
[2021-07-11] MEDS: Pantoprazole 40 MG Tab.CR PO SCH (07:33)
[2021-07-11] MEDS: Losartan 100 MG Tab PO SCH (07:33)
[2021-07-11] MEDS: Diltiazem 120 MG Cap.CD PO SCH (07:33)
[2021-07-11] MEDS: Apixaban 5 MG Tab PO SCH (07:33)
[2021-07-11 07:35] VITALS: PULSE 78
[2021-07-11] MEDS: buPROPion 100 MG Tab.SR PO SCH (07:35)
[2021-07-11 07:42] VITALS: BP 127/90
[2021-07-11] MEDS: Meclizine 12.5 MG Tab PO PRN (08:10)
[2021-07-11] MEDS: Ondansetron 4 MG Tab.DIS PO PRN (10:16)
== END 2021-07-11 10:20 | DRG 149 ==
LOC: CC.MS 12:13 → UNDOADMIN 12:13 → CC.MS 12:39
PROVIDERS: ADMIT Nurse Practitioner Family; ATTEND Nurse Practitioner Family
DX: R42 Dizziness and giddiness (principal); I50.9 Heart failure, unspecified; I48.91 Unspecified atrial fibrillation; E87.6 Hypokalemia; H54.7 Unspecified visual loss; H91.90 Unspecified hearing loss, unspecified ear; M19.90 Unspecified osteoarthritis, unspecified site; G43.909 Migraine, unspecified, not intractable, without status migrainosus; E66.9 Obesity, unspecified; F41.9 Anxiety disorder, unspecified; Z20.822 Contact with and (suspected) exposure to COVID-19; I11.0 Hypertensive heart disease with heart failure; F32.A Depression, unspecified; E03.9 Hypothyroidism, unspecified; Z96.653 Presence of artificial knee joint, bilateral; Z79.01 Long term (current) use of anticoagulants; Z79.890 Hormone replacement therapy; Z98.49 Cataract extraction status, unspecified eye; Z79.899 Other long term (current) drug therapy; Z68.36 Body mass index [BMI] 36.0-36.9, adult
CPT/HCPCS: 36415; 71045; 80048; 83880; 84484; 85025; 97161-GP; 99306; 99307; 99316; A9270-GY; J1940; U0002

== ENCOUNTER 2022-02-04 22:46 | Emergency (ER) | payer MEDICARE, OTHER ==
[2022-02-04 23:58] LABS: CHLORIDE,CL 102 mEq/L (98-106); SODIUM,NA 140 mEq/L (136-145)
[2022-02-04 23:59] LABS: ESTIMATED GFR 34 mL/min (>=60)
[2022-02-05 00:18] LABS: CORONAVIRUS COVID-19 NAA NEGATIVE (NEGATIVE); RESPIRATORY SYNCYTIAL VIR NAA NEGATIVE (NEGATIVE)
[2022-02-05] MEDS: Furosemide 40 MG Tab PO ONE (00:58)
[2022-02-05 01:44] VITALS: BP 138/82; PULSE 96
== END 2022-02-05 01:35 | disposition home or self-care (01) ==
LOC: CC.ED 22:46
DX: I11.0 Hypertensive heart disease with heart failure (principal); I50.9 Heart failure, unspecified; Z79.01 Long term (current) use of anticoagulants; Z86.16 Personal history of COVID-19; Z79.899 Other long term (current) drug therapy; Z20.822 Contact with and (suspected) exposure to COVID-19
CPT/HCPCS: 0241U; 36415; 71046; 80053; 83735; 83880; 85025; 99285; A9270-GY

== ENCOUNTER 2023-06-14 10:45 | Emergency (ER) | payer MEDICARE, OTHER ==
[2023-06-14 10:55] VITALS: BP 103/73; PULSE 74
[2023-06-14 11:33] LABS: BASOPHILS ABSOLUTE AUTO 0.07 10^3/uL (0.00-0.50); BASOPHILS PERCENT AUTO 0.6 % (0-1); EOSINOPHILS PERCENT AUTO 1.6 % (0-6); HEMATOCRIT 44.2 % (37.0-47.0); HEMOGLOBIN 14.3 g/dL (12.0-16.0); IMMATURE GRAN ABSOLUTE AUTO 0.11 10^3/uL (0.00-0.49); IMMATURE GRAN PERCENT AUTO 0.9 % (0.0-4.9); LYMPHOCYTES ABSOLUTE AUTO 0.94 10^3/uL (0.60-5.00); LYMPHOCYTES PERCENT AUTO 7.7 % (24-44); MEAN CORPUSCULAR HGB CONC 32.4 g/dL (32.0-36.0); MEAN CORPUSCULAR VOLUME 92.9 fL (83.0-97.0); MONOCYTES ABSOLUTE AUTO 0.73 10^3/uL (0.00-1.50); NEUTROPHILS PERCENT AUTO 83.2 % (41-71); PLATELET COUNT,PLT 280 10^3/uL (150-400); RED BLOOD CELL COUNT 4.76 x10^6/uL (4.00-5.50); WHITE BLOOD CELL COUNT,WBC 12.2 10^3/uL (4.0-11.0)
[2023-06-14 11:58] LABS: ALBUMIN 3.3 g/dL (3.4-5.0); BILIRUBIN TOTAL 0.6 mg/dL (0.0-1.0); C-REACTIVE PROTEIN 1.28 mg/dL (<=0.50); CALCIUM 8.9 mg/dL (8.4-10.1); CREATININE 1.3 mg/dL (0.6-1.0); EST CRCL DRUG DOSING (CG) 29.62 mL/min; PROTEIN TOTAL,TP 7.1 g/dL (6.4-8.2)
[2023-06-14] MEDS: Azithromycin 250 MG Tab PO ONE (12:10)
[2023-06-14] MEDS: methylPREDNISolone Sodium Succinate 40 MG/1 ML SDV IVPUSH ONE (12:10)
[2023-06-14] MEDS: methylPREDNISolone Sodium Succinate 40 MG/1 ML SDV ONE (12:17)
== END 2023-06-14 12:30 | disposition home or self-care (01) ==
LOC: CC.ED 10:45
DX: J20.9 Acute bronchitis, unspecified (principal); I10 Essential (primary) hypertension; E03.9 Hypothyroidism, unspecified; Z79.01 Long term (current) use of anticoagulants; Z79.899 Other long term (current) drug therapy
CPT/HCPCS: 36415; 71045; 71046; 80053; 83735; 83880; 84484; 85025; 86140; 87804; 93005; 93010; 96374; 99284; 99285-25; A9270-GY; J2920; U0002

== ENCOUNTER 2024-04-05 09:58 | Emergency (ER) | payer MEDICARE, OTHER ==
[2024-04-05] MEDS: Albuterol/Ipratropium 3.0-0.5 MG/3 ML Neb Soln NEB ONE (10:24)
[2024-04-05 10:27] LABS: BASOPHILS ABSOLUTE AUTO 0.08 10^3/uL (0.00-0.50); EOSINOPHILS ABSOLUTE AUTO 0.16 10^3/uL (0.00-1.50); EOSINOPHILS PERCENT AUTO 1.9 % (0-6); HEMATOCRIT 46.4 % (37.0-47.0); HEMOGLOBIN 14.9 g/dL (12.0-16.0); IMMATURE GRAN ABSOLUTE AUTO 0.06 10^3/uL (0.00-0.49); IMMATURE GRAN PERCENT AUTO 0.7 % (0.0-4.9); LYMPHOCYTES ABSOLUTE AUTO 1.45 10^3/uL (0.60-5.00); LYMPHOCYTES PERCENT AUTO 17.6 % (24-44); MEAN CORPUSCULAR HEMOGLOBIN 30.1 pg (27.0-32.0); MEAN CORPUSCULAR HGB CONC 32.1 g/dL (32.0-36.0); MEAN CORPUSCULAR VOLUME 93.7 fL (83.0-97.0); MONOCYTES ABSOLUTE AUTO 0.59 10^3/uL (0.00-1.50); MONOCYTES PERCENT AUTO 7.2 % (0-10); NEUTROPHILS ABSOLUTE AUTO 5.91 x10^3/uL (1.80-8.00); NEUTROPHILS PERCENT AUTO 71.6 % (41-71); PLATELET COUNT,PLT 234 10^3/uL (150-400); RED BLOOD CELL COUNT 4.95 x10^6/uL (4.00-5.50); WHITE BLOOD CELL COUNT,WBC 8.3 10^3/uL (4.0-11.0)
[2024-04-05 10:54] LABS: ALANINE AMINOTRANSFERASE,ALT 19 U/L (12-78); ALBUMIN 3.4 g/dL (3.4-5.0); ALKALINE PHOSPHATASE 109 U/L (46-116); ASPARTATE AMNIOTRANSFERASE,AST 17 U/L (15-37); BILIRUBIN TOTAL 0.4 mg/dL (0.0-1.0); BLOOD UREA NITROGEN,BUN 31 mg/dL (7-18); CALCIUM 9.7 mg/dL (8.4-10.1); CARBON DIOXIDE,CO2 28 mmol/L (21-32); CHLORIDE,CL 104 mEq/L (98-106); CREATININE 1.4 mg/dL (0.6-1.0); GLUCOSE RANDOM 138 mg/dL (75-99); PRO B-TYPE NATRIUR PEPT,BNPPRO 680 pg/mL (0-1000); PROTEIN TOTAL,TP 7.1 g/dL (6.4-8.2); SODIUM,NA 143 mEq/L (136-145)
[2024-04-05 10:58] LABS: C-REACTIVE PROTEIN < 0.50 mg/dL (<=0.50); ESTIMATED GFR 37 mL/min (>=60)
[2024-04-05 11:08] VITALS: BP 131/82; PULSE 84
[2024-04-05] MEDS: methylPREDNISolone Acetate 80 MG/ML SDV IM ONE (11:09)
== END 2024-04-05 11:20 | disposition home or self-care (01) ==
LOC: CC.ED 09:58
DX: J20.9 Acute bronchitis, unspecified (principal); I10 Essential (primary) hypertension; E03.9 Hypothyroidism, unspecified; M19.90 Unspecified osteoarthritis, unspecified site; Z79.899 Other long term (current) drug therapy; Z79.01 Long term (current) use of anticoagulants; Z87.891 Personal history of nicotine dependence
CPT/HCPCS: 36415; 71046; 80053; 83880; 85025; 86140; 87428-QW; 94640; 96372; 99283; 99285; J1010; J7620-GY

== ENCOUNTER 2024-12-30 14:56 | Inpatient (IN) | payer MEDICARE, OTHER ==
[2024-12-30 15:39] LABS: BASOPHILS ABSOLUTE AUTO 0.05 10^3/uL (0.00-0.50); BASOPHILS PERCENT AUTO 0.6 % (0-1); EOSINOPHILS ABSOLUTE AUTO 0.10 10^3/uL (0.00-1.50); EOSINOPHILS PERCENT AUTO 1.2 % (0-6); IMMATURE GRAN ABSOLUTE AUTO 0.06 10^3/uL (0.00-0.49); IMMATURE GRAN PERCENT AUTO 0.7 % (0.0-4.9); LYMPHOCYTES ABSOLUTE AUTO 1.06 10^3/uL (0.60-5.00); LYMPHOCYTES PERCENT AUTO 12.6 % (24-44); MONOCYTES ABSOLUTE AUTO 0.54 10^3/uL (0.00-1.50); MONOCYTES PERCENT AUTO 6.4 % (0-10); NEUTROPHILS ABSOLUTE AUTO 6.59 x10^3/uL (1.80-8.00); NEUTROPHILS PERCENT AUTO 78.5 % (41-71); PLATELET COUNT,PLT 259 10^3/uL (150-400); RED BLOOD CELL COUNT 4.67 x10^6/uL (4.00-5.50); WHITE BLOOD CELL COUNT,WBC 8.4 10^3/uL (4.0-11.0)
[2024-12-30 15:55] LABS: ALANINE AMINOTRANSFERASE,ALT 21 U/L (12-78); ASPARTATE AMNIOTRANSFERASE,AST 14 U/L (15-37); BILIRUBIN TOTAL 0.5 mg/dL (0.0-1.0); BLOOD UREA NITROGEN,BUN 22 mg/dL (7-18); CARBON DIOXIDE,CO2 31 mmol/L (21-32); CHLORIDE,CL 102 mEq/L (98-106); CREATININE 1.2 mg/dL (0.6-1.0); EST CRCL DRUG DOSING (CG) 30.92 mL/min; ESTIMATED GFR 44 mL/min (>=60); GLUCOSE RANDOM 137 mg/dL (75-99); POTASSIUM,K 4.4 mEq/L (3.5-5.0); PROTEIN TOTAL,TP 6.4 g/dL (6.4-8.2); SODIUM,NA 141 mEq/L (136-145)
[2024-12-30] MEDS ORDERED: Albuterol 0.083% 2.5 MG/3 ML Neb Soln NEB PRN (17:21)
[2024-12-30] MEDS ORDERED: Ondansetron 4 MG/2 ML SDV IV PRN (18:12)
[2024-12-31 08:05] LABS: BASOPHILS ABSOLUTE AUTO 0.05 10^3/uL (0.00-0.50); BASOPHILS PERCENT AUTO 0.5 % (0-1); EOSINOPHILS ABSOLUTE AUTO 0.09 10^3/uL (0.00-1.50); EOSINOPHILS PERCENT AUTO 1.0 % (0-6); IMMATURE GRAN ABSOLUTE AUTO 0.05 10^3/uL (0.00-0.49); IMMATURE GRAN PERCENT AUTO 0.5 % (0.0-4.9); LYMPHOCYTES ABSOLUTE AUTO 1.19 10^3/uL (0.60-5.00); LYMPHOCYTES PERCENT AUTO 12.6 % (24-44); MONOCYTES ABSOLUTE AUTO 0.68 10^3/uL (0.00-1.50); MONOCYTES PERCENT AUTO 7.2 % (0-10); NEUTROPHILS ABSOLUTE AUTO 7.35 x10^3/uL (1.80-8.00); NEUTROPHILS PERCENT AUTO 78.2 % (41-71); PLATELET COUNT,PLT 233 10^3/uL (150-400); RED BLOOD CELL COUNT 4.47 x10^6/uL (4.00-5.50); WHITE BLOOD CELL COUNT,WBC 9.4 10^3/uL (4.0-11.0)
[2024-12-31] MEDS: Diltiazem 180 MG Cap.CD PO SCH (08:07)
[2024-12-31] MEDS: Diltiazem 120 MG Cap.CD PO SCH (08:08)
[2024-12-31 08:12] LABS: BLOOD UREA NITROGEN,BUN 16.0 mg/dL (7-18); CARBON DIOXIDE,CO2 28.0 mmol/L (21-32); CHLORIDE,CL 106.0 mEq/L (98-106); CREATININE 1.0 mg/dL (0.6-1.0); EST CRCL DRUG DOSING (CG) 37.1 mL/min; GLUCOSE RANDOM 113.0 mg/dL (75-99); POTASSIUM,K 3.5 mEq/L (3.5-5.0); SODIUM,NA 143.0 mEq/L (136-145)
[2024-12-31 08:23] LABS: ESTIMATED GFR 55.0 mL/min (>=60)
[2024-12-31] MEDS: Ondansetron 4 MG Tab.DIS PO PRN (09:34)
[2025-01-01 09:01] LABS: BASOPHILS ABSOLUTE AUTO 0.06 10^3/uL (0.00-0.50); BASOPHILS PERCENT AUTO 0.7 % (0-1); EOSINOPHILS ABSOLUTE AUTO 0.13 10^3/uL (0.00-1.50); EOSINOPHILS PERCENT AUTO 1.6 % (0-6); IMMATURE GRAN ABSOLUTE AUTO 0.05 10^3/uL (0.00-0.49); IMMATURE GRAN PERCENT AUTO 0.6 % (0.0-4.9); LYMPHOCYTES ABSOLUTE AUTO 1.34 10^3/uL (0.60-5.00); LYMPHOCYTES PERCENT AUTO 16.3 % (24-44); MONOCYTES ABSOLUTE AUTO 0.63 10^3/uL (0.00-1.50); MONOCYTES PERCENT AUTO 7.7 % (0-10); NEUTROPHILS ABSOLUTE AUTO 6.02 x10^3/uL (1.80-8.00); NEUTROPHILS PERCENT AUTO 73.1 % (41-71); PLATELET COUNT,PLT 240 10^3/uL (150-400); RED BLOOD CELL COUNT 4.26 x10^6/uL (4.00-5.50); WHITE BLOOD CELL COUNT,WBC 8.2 10^3/uL (4.0-11.0)
[2025-01-01 09:10] LABS: BLOOD UREA NITROGEN,BUN 14.0 mg/dL (7-18); CARBON DIOXIDE,CO2 27.0 mmol/L (21-32); CHLORIDE,CL 107.0 mEq/L (98-106); CREATININE 1.2 mg/dL (0.6-1.0); EST CRCL DRUG DOSING (CG) 30.92 mL/min; ESTIMATED GFR 44.0 mL/min (>=60); GLUCOSE RANDOM 135.0 mg/dL (75-99); POTASSIUM,K 3.2 mEq/L (3.5-5.0); SODIUM,NA 143.0 mEq/L (136-145)
[2025-01-01] MEDS: Potassium Chloride 20 MEQ Tab.ER PO ONE (10:06)
[2025-01-02 07:45] LABS: BLOOD UREA NITROGEN,BUN 12.0 mg/dL (7-18); CARBON DIOXIDE,CO2 27.0 mmol/L (21-32); CHLORIDE,CL 106.0 mEq/L (98-106); CREATININE 0.9 mg/dL (0.6-1.0); EST CRCL DRUG DOSING (CG) 41.23 mL/min; GLUCOSE RANDOM 106.0 mg/dL (75-99); POTASSIUM,K 3.6 mEq/L (3.5-5.0); SODIUM,NA 142.0 mEq/L (136-145)
[2025-01-02 07:47] LABS: BASOPHILS ABSOLUTE AUTO 0.06 10^3/uL (0.00-0.50); BASOPHILS PERCENT AUTO 0.7 % (0-1); EOSINOPHILS ABSOLUTE AUTO 0.13 10^3/uL (0.00-1.50); EOSINOPHILS PERCENT AUTO 1.5 % (0-6); IMMATURE GRAN ABSOLUTE AUTO 0.05 10^3/uL (0.00-0.49); IMMATURE GRAN PERCENT AUTO 0.6 % (0.0-4.9); LYMPHOCYTES ABSOLUTE AUTO 1.55 10^3/uL (0.60-5.00); LYMPHOCYTES PERCENT AUTO 18.3 % (24-44); MONOCYTES ABSOLUTE AUTO 0.74 10^3/uL (0.00-1.50); MONOCYTES PERCENT AUTO 8.7 % (0-10); NEUTROPHILS ABSOLUTE AUTO 5.93 x10^3/uL (1.80-8.00); NEUTROPHILS PERCENT AUTO 70.2 % (41-71); PLATELET COUNT,PLT 221 10^3/uL (150-400); RED BLOOD CELL COUNT 4.13 x10^6/uL (4.00-5.50); WHITE BLOOD CELL COUNT,WBC 8.5 10^3/uL (4.0-11.0)
[2025-01-02 08:01] LABS: ESTIMATED GFR 62.0 mL/min (>=60)
[2025-01-03 07:15] LABS: BASOPHILS ABSOLUTE AUTO 0.04 10^3/uL (0.00-0.50); BASOPHILS PERCENT AUTO 0.4 % (0-1); EOSINOPHILS ABSOLUTE AUTO 0.08 10^3/uL (0.00-1.50); EOSINOPHILS PERCENT AUTO 0.9 % (0-6); IMMATURE GRAN ABSOLUTE AUTO 0.06 10^3/uL (0.00-0.49); IMMATURE GRAN PERCENT AUTO 0.7 % (0.0-4.9); LYMPHOCYTES ABSOLUTE AUTO 1.43 10^3/uL (0.60-5.00); LYMPHOCYTES PERCENT AUTO 16.0 % (24-44); MONOCYTES ABSOLUTE AUTO 1.02 10^3/uL (0.00-1.50); MONOCYTES PERCENT AUTO 11.4 % (0-10); NEUTROPHILS ABSOLUTE AUTO 6.30 x10^3/uL (1.80-8.00); NEUTROPHILS PERCENT AUTO 70.6 % (41-71); PLATELET COUNT,PLT 202 10^3/uL (150-400); RED BLOOD CELL COUNT 4.20 x10^6/uL (4.00-5.50); WHITE BLOOD CELL COUNT,WBC 8.9 10^3/uL (4.0-11.0)
[2025-01-03 07:43] LABS: ALANINE AMINOTRANSFERASE,ALT 19.0 U/L (12-78); ASPARTATE AMNIOTRANSFERASE,AST 14.0 U/L (15-37); BILIRUBIN TOTAL 0.7 mg/dL (0.0-1.0); BLOOD UREA NITROGEN,BUN 13.0 mg/dL (7-18); CARBON DIOXIDE,CO2 29.0 mmol/L (21-32); CHLORIDE,CL 107.0 mEq/L (98-106); CREATININE 1.2 mg/dL (0.6-1.0); EST CRCL DRUG DOSING (CG) 30.92 mL/min; ESTIMATED GFR 44.0 mL/min (>=60); GLUCOSE RANDOM 116.0 mg/dL (75-99); POTASSIUM,K 3.4 mEq/L (3.5-5.0); PROTEIN TOTAL,TP 5.7 g/dL (6.4-8.2); SODIUM,NA 144.0 mEq/L (136-145)
[2025-01-03 08:23] VITALS: BP 110/75; PULSE 96
== END 2025-01-03 11:45 | disposition home or self-care (01) | DRG 149 ==
LOC: CC.ED 14:56 → CC.MS 18:04 → OBSVTOIN 12-31 14:19
PROVIDERS: ADMIT Nurse Practitioner Family; ATTEND Nurse Practitioner Family
DX: H81.11 Benign paroxysmal vertigo, right ear (principal); Z66 Do not resuscitate; E86.0 Dehydration; Z79.890 Hormone replacement therapy; R11.0 Nausea; R53.1 Weakness; H91.90 Unspecified hearing loss, unspecified ear; H54.7 Unspecified visual loss; I10 Essential (primary) hypertension; M19.90 Unspecified osteoarthritis, unspecified site; F41.9 Anxiety disorder, unspecified; F32.A Depression, unspecified; E03.9 Hypothyroidism, unspecified; Z96.659 Presence of unspecified artificial knee joint; Z98.890 Other specified postprocedural states; Z79.01 Long term (current) use of anticoagulants; Z79.899 Other long term (current) drug therapy; Z98.49 Cataract extraction status, unspecified eye; Z87.891 Personal history of nicotine dependence
CPT/HCPCS: 36415; 71045; 80048; 80053; 83735; 84484; 85025; 86140; 93005; 93010; 97112-GP; 99285; A9270-GY; G0378; J7030